=== PATIENT | female | born 1975 | race Caucasian/White ===

== ENCOUNTER 2022-06-02 08:17 | Day surgery (SDC) | payer OTHER ==
[2022-06-02] MEDS ORDERED: cefTRIAXone 2 GM in Sodium Chloride 0.9% 50 ML IV ONE (08:30)
[2022-06-02] MEDS ORDERED: Indocyanine Green 25 MG SDV IV SCH (08:35)
[2022-06-02] MEDS ORDERED: Lactated Ringers 1,000 ML IV SCH (08:45)
[2022-06-02] MEDS ORDERED: Scopolamine 1.5 MG Transdermal Patch TOP ONE (08:46)
[2022-06-02] MEDS ORDERED: Acetaminophen 500 MG Tab PO ONE (09:00)
[2022-06-02] MEDS ORDERED: metroNIDAZOLE/Normal Saline 500 MG in Premix Bag 1 BAG IV ONE (09:00)
[2022-06-02 09:03] LABS: ESTIMATED GFR 79 mL/min (>60)
[2022-06-02] MEDS ORDERED: Succinylcholine 200 MG/10 ML MDV ONE (09:16)
[2022-06-02] MEDS ORDERED: Ondansetron 4 MG/2 ML SDV ONE (09:16)
[2022-06-02] MEDS ORDERED: Rocuronium 50 MG/5 ML Vial ONE (09:16)
[2022-06-02] MEDS ORDERED: Propofol 200 MG/20 ML SDV ONE (09:16)
[2022-06-02] MEDS ORDERED: Neostigmine Methylsulfate 1 MG/ML 5 ML Syringe ONE (09:16)
[2022-06-02] MEDS ORDERED: Glycopyrrolate 0.2 MG/ML 5 ML MDV ONE (09:16)
[2022-06-02] MEDS ORDERED: Dexamethasone 4 MG/ML SDV ONE (09:16)
[2022-06-02] MEDS ORDERED: Bupivacaine 0.5%/EPINEPHrine 1:200,000 50 ML MDV ONE (09:21)
[2022-06-02] MEDS ORDERED: Potassium Chloride 10 MEQ in Premix Bag 1 BAG IV ONE ×2 (10:00→11:00)
[2022-06-02] MEDS ORDERED: Magnesium Sulfate/Water 2 GM in Premix Bag 1 BAG IV ONE (10:00)
[2022-06-02] MEDS ORDERED: Scopolamine 1.5 MG Transdermal Patch ONE (10:29)
[2022-06-02] MEDS ORDERED: hydrOXYzine HCL 100 MG/2 ML SDV IM ONE (12:00)
[2022-06-02] MEDS ORDERED: traMADol 50 MG Tab PO ONE (12:45)
== END 2022-06-02 14:50 | disposition home or self-care (01) ==
LOC: JP.SDS 08:17 → EDSTATUS 10:30 → JP.SDS 14:50
PROVIDERS: ATTEND Student in an Organized Health Care Education/Training Program
DX: K80.10 Calculus of gallbladder with chronic cholecystitis without obstruction (principal); K43.9 Ventral hernia without obstruction or gangrene; K82.8 Other specified diseases of gallbladder; F41.9 Anxiety disorder, unspecified; G43.909 Migraine, unspecified, not intractable, without status migrainosus; K21.9 Gastro-esophageal reflux disease without esophagitis; I10 Essential (primary) hypertension; L40.50 Arthropathic psoriasis, unspecified; E66.9 Obesity, unspecified; E11.9 Type 2 diabetes mellitus without complications; Z79.899 Other long term (current) drug therapy; Z88.5 Allergy status to narcotic agent; Z91.048 Other nonmedicinal substance allergy status; Z88.8 Allergy status to other drugs, medicaments and biological substances; Z68.32 Body mass index [BMI] 32.0-32.9, adult
CPT/HCPCS: 36415; 47562; 49591; 80048; 83735; 84100; 84703; 88304; A9270; J0330; J0696; J1100; J2405; J2704; J2710; J3410; J3475; J3480; J3490; J7120

== ENCOUNTER 2023-11-18 08:16 | Emergency (ER) | payer OTHER ==
[2023-11-18 08:51] LABS: HEMATOCRIT 48.3 % (34.3-46.0); HEMOGLOBIN 16.9 g/dL (11.2-15.5); MEAN CORPUSCULAR HEMOGLOBIN 31.7 pg (31.6-35.5); MEAN CORPUSCULAR VOLUME 90.6 fL (81.4-99.0); PLATELET COUNT,PLT 307 K/uL (130-375); RED BLOOD CELL COUNT 5.33 M/uL (3.77-5.24); WHITE BLOOD CELL COUNT,WBC 15.7 K/uL (3.2-11.0)
[2023-11-18] MEDS: Alum Hydrox/Mag Hydrox/Simeth 15 ML, Lidocaine 2% 15 ML PO ONE (08:51)
[2023-11-18 09:05] LABS: ALANINE AMINOTRANSFERASE,ALT 32 U/L (12-78); ALKALINE PHOSPHATASE 101 U/L (46-116); ASPARTATE AMNIOTRANSFERASE,AST 17 U/L (15-37); BILIRUBIN TOTAL 0.5 mg/dL (0.2-1.0); BLOOD UREA NITROGEN,BUN 9 mg/dL (7-18); CARBON DIOXIDE,CO2 25 mmol/L (21-32); CHLORIDE,CL 100 mmol/L (100-108); EST CRCL DRUG DOSING (CG) 58.76 mL/min; ESTIMATED GFR 69 mL/min (>60); GLUCOSE RANDOM 132 mg/dL (74-106); POTASSIUM,K 3.5 mmol/L (3.6-5.2); SODIUM,NA 139 mmol/L (140-148)
[2023-11-18 09:09] LABS: ANION GAP 17.5 mmol/L (5.0-14.0)
[2023-11-18 09:10] LABS: TROPONIN I HIGH SENSITIVITY 67.4 pg/mL (<=60.3)
[2023-11-18 09:15] LABS: BAND ABSOLUTE MAN 0.47 K/uL; BAND PERCENT MAN 3 % (5-11); EOSINOPHILS ABSOLUTE MAN 0.16 K/uL (0.00-0.40); EOSINOPHILS PERCENT MAN 1 % (2-4); LYMPHOCYTES PERCENT MAN 21 % (24-44); MONOCYTES ABSOLUTE MAN 0.63 K/uL (0.20-0.90); MONOCYTES PERCENT MAN 4 % (2-6); NEUTROPHILS ABSOLUTE MAN 11.15 K/uL (1.0-7.6); SEG NEUTROPHILS PERCENT MAN 71 % (36-66)
[2023-11-18] MEDS: Aspirin 81 MG Tab.Chew PO ONE (09:40)
[2023-11-18] MEDS: Nitroglycerin 0.4 MG Tab.SL SL ONE (10:46)
[2023-11-18] MEDS: Iopamidol 755 Mg/ML 100 ML Bottle IV SCH (10:48)
[2023-11-18] MEDS: Sodium Chloride 0.9% 100 ML IV SCH (10:48)
[2023-11-18] MEDS: Sodium Chloride 0.9% 10 ML Syringe FLUSH ONE (10:48)
[2023-11-18] MEDS ORDERED: Heparin Sodium 5,000 Units/ML Vial IVPUSH ONE (11:03)
[2023-11-18] MEDS: Metoprolol Tartrate 5 MG/5 ML SDV IVPUSH ONE (11:21)
[2023-11-18] MEDS: Heparin Sodium 5,000 Units/ML Vial IVPUSH ONE (11:23)
[2023-11-18] MEDS: Heparin Sodium/D5W 25,000 UNITS/500 ML BAG IV SCH (11:29)
== END 2023-11-18 11:45 | disposition other institution (70) ==
LOC: JP.ED 08:16
DX: I21.4 Non-ST elevation (NSTEMI) myocardial infarction (principal); I10 Essential (primary) hypertension; K21.9 Gastro-esophageal reflux disease without esophagitis; E66.9 Obesity, unspecified; F17.210 Nicotine dependence, cigarettes, uncomplicated; Z90.49 Acquired absence of other specified parts of digestive tract; Z90.710 Acquired absence of both cervix and uterus; Z68.34 Body mass index [BMI] 34.0-34.9, adult; Z79.899 Other long term (current) drug therapy; Z88.8 Allergy status to other drugs, medicaments and biological substances; Z88.5 Allergy status to narcotic agent; Z91.013 Allergy to seafood
CPT/HCPCS: 36415; 71046; 71275; 80053; 84484; 85025; 85730; 93005; 96365; 96375; 99285; A9270; J1644; J3490; Q9967; 93010